=== PATIENT | female | born 2000 | race Two or more races ===

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

== ENCOUNTER 2024-07-06 12:28 | Emergency (ER) | payer OTHER ==
[~2024-07-06] VITALS: Ht 165.1 cm; Wt 62.6 kg
[2024-07-06 13:19] VITALS: BP 109/74; O2SAT 100
[2024-07-06] MEDS ORDERED: PRENATA CHEWAB1 EACH (13:19)
[2024-07-06 14:20] LABS: HEMATOCRIT 36.3 % (36.0-45.00); HEMOGLOBIN 12.3 g/dL (12.0-15.00); MEAN CELL VOLUME 90.1 fL (80.00-100.00); MEAN CORPUSCULAR HEMOGLOBIN 30.5 pg (27.00-32.0); MEAN CORPUSCULAR HGB CONC 33.8 g/dl (32.0-36.0); PLATELET COUNT 221 K/uL (150-450); RED BLOOD COUNT 4.03 M/uL (4.00-6.00); RED CELL DISTRIBUTION WIDTH 13.3 % (11.5-14.5)
[2024-07-06 15:02] LABS: PH,URINE 5.5 (5.0-8.0); URINE APPEARANCE Clear; URINE BILIRRUBIN Negative (NEGATIVE); URINE BLOOD Negative; URINE COLOR Yellow; URINE GLUCOSE Negative (NEGATIVE); URINE KETONE Negative (NEGATIVE); URINE LEUKOCYTE Negative; URINE NITRATE Negative; URINE PROTEIN Negative (NEGATIVE); URINE UROBILINOGEN 0.2 E.U./dl
[2024-07-06 15:06] LABS: URINE BACTERIA 4001.1 uL (0.0-1933); URINE EPITHELIAL CELLS 64.8 uL (0.0-38.8); URINE RBC 2.7 uL (0.0-20.8)
[2024-07-06 15:07] LABS: URINE CAST 0.29 uL (0.0-1.40)
[2024-07-06 15:57] LABS: CALCIUM 8.8 mg/dL (8.5-10.1); CREATININE SERUM 0.49 mg/dL (0.55-1.02); GFR 152.66; POTASSIUM 4.33 mEq/L (3.5-5.1)
== END 2024-07-06 16:45 | disposition home or self-care (01) ==
LOC: ER 12:28
PROVIDERS: General Practice
DX: O26.891 Other specified pregnancy related conditions, first trimester (principal); R33.9 Retention of urine, unspecified; Z3A.12 12 weeks gestation of pregnancy